=== PATIENT | male | born 1995 | race Two or more races ===

== ENCOUNTER 2019-10-05 20:00 | Emergency (ER) | payer OTHER ==
[~2019-10-05] VITALS: Ht 160 cm; Wt 63.5 kg
[2019-10-05 22:02] VITALS: BP 132/79
== END 2019-10-06 00:25 | disposition left against medical advice (07) ==
LOC: ER 20:13
DX: S69.91XA Unspecified injury of right wrist, hand and finger(s), initial encounter (principal); F17.210 Nicotine dependence, cigarettes, uncomplicated; F12.10 Cannabis abuse, uncomplicated; W23.0XXA Caught, crushed, jammed, or pinched between moving objects, initial encounter; Y93.89 Activity, other specified; Y92.098 Other place in other non-institutional residence as the place of occurrence of the external cause; Y99.8 Other external cause status

== ENCOUNTER 2020-02-09 20:36 | Emergency (ER) | payer OTHER ==
[~2020-02-09] VITALS: Ht 170.2 cm; Wt 68.0 kg
[2020-02-09 22:20] VITALS: BP 133/80
== END 2020-02-09 22:16 | disposition home or self-care (01) ==
LOC: ER 20:42
DX: H66.92 Otitis media, unspecified, left ear (principal); J06.9 Acute upper respiratory infection, unspecified
CPT/HCPCS: 71046

== ENCOUNTER 2020-02-10 14:00 | Emergency (ER) | payer OTHER ==
[~2020-02-10] VITALS: Ht 175.3 cm; Wt 68.0 kg
[2020-02-10 14:18] VITALS: BP 121/54
[2020-02-10] MEDS ORDERED: IBUPROFEN 600 MG TAB PO ONE (15:00)
== END 2020-02-10 15:29 | disposition home or self-care (01) ==
LOC: ER 14:00
DX: H72.92 Unspecified perforation of tympanic membrane, left ear (principal); F17.210 Nicotine dependence, cigarettes, uncomplicated; Z87.442 Personal history of urinary calculi

== ENCOUNTER 2020-09-08 18:52 | Emergency (ER) | payer OTHER ==
[~2020-09-08] VITALS: Ht 167.6 cm; Wt 65.8 kg
[2020-09-08 21:58] VITALS: BP 114/75
[2020-09-08] MEDS ORDERED: FLUORESCEIN SOD 1 MG TEST STRIP LEFTEYE ONE (22:00)
[2020-09-08] MEDS ORDERED: TETRACAINE HCL 0.5% OPTH(EYE) SOLN 4ML LEFTEYE ONE (22:00)
== END 2020-09-09 00:56 | disposition left against medical advice (07) ==
LOC: ER 18:52
DX: T15.02XA Foreign body in cornea, left eye, initial encounter (principal); Z87.442 Personal history of urinary calculi; X58.XXXA Exposure to other specified factors, initial encounter; Y93.89 Activity, other specified; Y92.89 Other specified places as the place of occurrence of the external cause; Y99.8 Other external cause status
CPT/HCPCS: 65220; 99284; J7030